=== PATIENT | female | born 1980 | race Caucasian/White ===

== ENCOUNTER → 2016-09-14 | Outpatient (CLI) | payer OTHER ==
[2016-09-14 18:06] LABS: BASO % 0.2 % (0.0-1.0); EOS # 0.2 K/mm3 (0.0-0.50); EOS % 1.7 % (0.0-3.0); LARGE UNSTAINED CELL # 0.1 K/mm3 (0.0-0.4); LARGE UNSTAINED CELL % 0.7 % (0.0-4.0); LYMPH # 1.9 K/mm3 (1.5-4.5); MEAN CORPUSCULAR HEMOGLOBIN 29.2 pg (27.0-33.0); MEAN CORPUSCULAR HGB CONC 33.4 g/dl (32.0-36.5); MEAN CORPUSCULAR VOLUME 87.3 fl (80.0-96.0); MONO # 0.4 K/mm3 (0.0-0.8); MONO % 4.3 % (0.0-5.0); NEUTROPHILS # 7.6 K/mm3 (1.8-7.7); NEUTROPHILS % 75.1 % (36.0-66.0); PLATELET COUNT, AUTOMATED 346 k/mm3 (150-450); RED CELL DISTRIBUTION WIDTH 13.1 % (11.5-14.5); WHITE BLOOD COUNT 10.2 K/mm3 (4.0-10.0)
[2016-09-16 10:36] LABS: HBsAg Prenatal NEGATIVE (NEGATIVE)
== END ==
LOC: M SMT 14:30 → M LAB 15:07
PROVIDERS: ATTEND Obstetrics & Gynecology
DX: Z34.81 Encounter for supervision of other normal pregnancy, first trimester (principal)

== ENCOUNTER → 2016-10-13 | Outpatient (CLI) | payer OTHER | LOC: M LRY 15:48 | PROVIDERS: ATTEND Obstetrics & Gynecology | DX: Z13.79 Encounter for other screening for genetic and chromosomal anomalies (principal) ==

== ENCOUNTER → 2016-11-29 | Outpatient (CLI) | payer OTHER ==
--- NOTE | 2016-11-30 05:43 | REP ---
Clinical: Anatomical evaluation. Comparison: 05/16/2016 . Findings: Examination demonstrates a single live intrauterine in variable presentation. motion is identified by technologist. Placenta is noted posteriorly and grade zero without evidence for placenta previa or abruption. Amniotic fluid volume is normal. Cervix measures 6.4 cm in length and appears closed. No evidence for nuchal cord. Gestational age by LMP 19 weeks 3 days with MARY 04/22/2017 . Gestational age by current measurements 20 weeks 0 days with MARY 04/18/2017 . FHR equals 160 beats per minute. BPD 4.5 cm 19 weeks 4 days HC 17.0 cm 19 weeks 4 days AC 16.0 cm 19 weeks 1 day FL 3.0 cm 19 weeks 2 days HL 3.1 cm 20 weeks 1 day HC/AC ratio 1.06 Estimated weight 338 grams ( 76 percentile). Anatomical assessment demonstrates normal structures including cranium, choroid plexus, cavum, cerebellum/posterior fossa, facial features, lungs, diaphragm, stomach, cord insertion, bladder, and extremities. Limited evaluation of the four-chamber heart, three-vessel cord, kidneys, and spine. Impression: 1. Single live intrauterine in variable presentation demonstrating appropriate interval growth. 2. Anatomical limitations as described above may warrant reevaluation and follow-up. Signed by Quirino Loo MD 11/30/2016 05:35 A
== END ==
LOC: M RAD 14:07
PROVIDERS: ATTEND Obstetrics & Gynecology
DX: O09.522 Supervision of elderly multigravida, second trimester (principal); Z3A.19 19 weeks gestation of pregnancy

== ENCOUNTER → 2016-12-14 | Outpatient (CLI) | payer OTHER ==
[~2016-12-14] MED LIST: ACET50TA PO; CYCL10TA PO; IBUP-1114 PO; PREN1CHW PO
--- NOTE | 2016-12-14 12:54 | REP ---
Clinical: Anatomical evaluation. Comparison: 11/29/2016 . Findings: Examination demonstrates a single live intrauterine in transverse (head to maternal left) presentation. motion is identified by technologist. Placenta is noted posterior fundally and grade zero without evidence for placenta previa or abruption. Amniotic fluid volume is normal. Cervix measures 3.9 cm in length and appears closed. No evidence for nuchal cord. Gestational age by LMP 21 weeks 4 days with MARY 04/22/2017 . Gestational age by current measurements 21 weeks 3 days with MARY 04/23/2017 . FHR equals 163 beats per minute. Estimated weight 430 grams ( 43rd percentile). Anatomical assessment demonstrates normal structures including cranium, cavum, lungs, diaphragm, stomach, cord insertion/three-vessel cord, kidneys/bladder, and lower extremities. Impression: Single live intrauterine in transverse lie demonstrating appropriate interval growth. Limited evaluation of the four-chamber heart and spine again noted. In conjunction with prior examination, the remainder of the anatomical assessment is normal. Signed by Quirino Loo MD 12/14/2016 12:45 P
== END ==
LOC: M RAD 11:35
PROVIDERS: ATTEND Advanced Practice Midwife
DX: Z34.82 Encounter for supervision of other normal pregnancy, second trimester (principal); Z3A.21 21 weeks gestation of pregnancy

== ENCOUNTER → 2017-01-10 | Outpatient (CLI) | payer OTHER ==
--- NOTE | 2017-01-11 06:31 | REP ---
Clinical: Anatomical evaluation. Comparison: 12/14/2016 . Findings: Examination demonstrates a single live intrauterine in breech presentation. motion is identified by technologist. Placenta is noted posteriorly and grade zero without evidence for placenta previa or abruption. Amniotic fluid volume is normal. Cervix measures 5.3 cm in length and appears closed. No evidence for nuchal cord. Gestational age by LMP 25 weeks 3 days with MARY 04/22/2017 . Gestational age by current measurements 25 weeks 3 day with MARY is 04/22/2017 . FHR equals 148 beats per minute. Estimated weight 863 grams ( 56 percentile). Anatomical assessment demonstrates normal structures including cranium, cavum, cerebellum/posterior fossa, facial features, lungs, four-chamber heart/ventricular outflow tracts, diaphragm, stomach, cord insertion/three-vessel cord, bladder, spine, and lower extremities. Impression: Single live intrauterine in breech presentation demonstrating appropriate interval growth. In conjunction with prior examination anatomical assessment is complete and normal. Signed by Quirino Loo MD 01/11/2017 06:23 A
== END ==
LOC: M RAD 09:13
PROVIDERS: ATTEND Obstetrics & Gynecology
DX: O09.522 Supervision of elderly multigravida, second trimester (principal); Z3A.25 25 weeks gestation of pregnancy

== ENCOUNTER → 2017-01-17 | Outpatient (CLI) | payer OTHER ==
[2017-01-17 11:41] LABS: MEAN CORPUSCULAR HEMOGLOBIN 29.4 pg (27.0-33.0); MEAN CORPUSCULAR HGB CONC 33.8 g/dl (32.0-36.5); MEAN CORPUSCULAR VOLUME 86.9 fl (80.0-96.0); RED CELL DISTRIBUTION WIDTH 13.8 % (11.5-14.5); WHITE BLOOD COUNT 9.3 K/mm3 (4.0-10.0)
== END ==
LOC: M LRY 09:40
PROVIDERS: ATTEND Obstetrics & Gynecology
DX: O09.522 Supervision of elderly multigravida, second trimester (principal); Z3A.00 Weeks of gestation of pregnancy not specified

== ENCOUNTER → 2017-03-23 | Outpatient (REF) | payer OTHER | LOC: M LAB REF 13:05 | PROVIDERS: ATTEND Obstetrics & Gynecology | DX: Z34.83 Encounter for supervision of other normal pregnancy, third trimester (principal) ==

== ENCOUNTER 2017-04-01 14:31 | Outpatient (CLI) | payer OTHER ==
[~2017-04-01] VITALS: Ht 170.2 cm; Wt 114.4 kg
[2017-04-01 14:46] VITALS: BP 138/90
[2017-04-01 15:23] VITALS: BP 121/76
--- NOTE | 2017-04-01 17:30 | REPUSA ---
HISTORY: RT FLANK PAIN, 37 WKS PREG. TECHNIQUE: Bilateral renal ultrasound examination. FINDINGS: Right kidney measures 13.9 x 7.8 x 6.8 cm with normal renal cortex, with mild hydronephrosi s, most likely related to 37 weeks . No renal mass or calculus or hydroureter is seen. Left kidney measures 14.0 x 5.8 x 5.9 cm with normal renal cortex and no hydronephrosis, mass, calcul us, or hydroureter seen. Viable intrauterine fetus is noted with active heart rate of 144 bpm. Urinary bladder is not adequat abraham visualized at this time. IMPRESSION: 1. Mild right hydronephrosis most likely related to 37 weeks . 2. No renal mass, calculus, left hydronephrosis, or hydroureter seen. 3. Viable fetus with heart rate of 144 bpm. .
[2017-04-01] MEDS ORDERED: CYCL10TA PO (17:33)
[2017-04-01] MEDS ORDERED: CYCLOBENZAPRINE 10 MG TAB PO ONE (18:00)
[2017-04-14] MEDS ORDERED: ACET50TA PO (16:40)
[2017-04-16] MEDS ORDERED: IBUP-1114 PO (09:33)
[2017-04-16] MEDS ORDERED: ACET50TA PO (09:33)
[2017-04-16] MEDS ORDERED: PREN1CHW PO (09:36)
== END 2017-04-01 17:30 | disposition home or self-care (01) ==
LOC: M LDO 14:31
PROVIDERS: ATTEND Obstetrics & Gynecology
DX: O26.893 Other specified pregnancy related conditions, third trimester (principal); Z3A.37 37 weeks gestation of pregnancy; R10.9 Unspecified abdominal pain; O47.1 False labor at or after 37 completed weeks of gestation